=== PATIENT | female | born 1985 | race Two or more races ===

== ENCOUNTER 2021-08-27 21:24 | Inpatient (IN) | payer MEDICAID ==
[~2021-08-27] VITALS: Ht 154 cm; Wt 73.5 kg
[2021-08-27] MEDS ORDERED: NALOXONE HCL 0.4 MG/ML 1ML VIAL IM PRN (22:30)
[2021-08-27] MEDS ORDERED: CARBOPROST TROMETHAMINE 250 MCG/ML AMPUL IM PRN (22:30)
[2021-08-27] MEDS ORDERED: MISOPROSTOL 100MCG TABLET VG SCH (22:30)
[2021-08-27] MEDS ORDERED: METHYLERGONOVINE MALEATE 0.2 MG/ML IM PRN (22:30)
[2021-08-27] MEDS: LACTATED RINGERS 1,000 ML IV SCH (23:05)
[2021-08-27 23:48] LABS: BASOPHILS % 0.4 % (0.0-2.0); EOSINOPHILS % 0.8 % (0.0-5.0); HEMATOCRIT. 35.3 % (36.0-48.0); HEMOGLOBIN. 11.6 g/dL (12.0-16.0); LYMPHOCYTES % 27.6 % (20.0-50.0); MEAN CORPUSCULAR HEMOGLOBIN 26.5 pg (28.0-32.0); MEAN CORPUSCULAR VOLUME 80.4 fL (81.0-99.0); MEAN PLATELET VOLUME 8.9 fl (7.4-10.4); MONOCYTES % 9.7 % (2.0-8.0); NEUTROPHILS % 61.5 % (40.0-76.0); PLATELET 255 x1000/uL (130-400); RED BLOOD CELL COUNT 4.39 mill/uL (4.2-5.4); RED CELL DISTRIBUTION WIDTH 17.1 % (11.6-14.6)
[2021-08-27 23:50] LABS: CHLORIDE 111 mEq/L (98-107)
[2021-08-27 23:55] LABS: CLARITY URINE CLEAR (CLEAR); COLOR URINE YELLOW (YELLOW); KETONES URINE TRACE (NEGATIVE); LEUKOCYTE ESTERASE URINE NEGATIVE (NEGATIVE); NITRITE URINE NEGATIVE (NEGATIVE); OCCULT BLOOD URINE NEGATIVE (NEGATIVE); PH URINE 5.5 (4.5-8.0); PROTEIN URINE NEGATIVE (NEGATIVE); SPECIFIC GRAVITY URINE 1.018 (1.005-1.030); UROBILINOGEN URINE 0.2 E.U./dL (0.2-1.0)
[2021-08-27 23:56] LABS: PARTIAL THROMBOPLASTIN TIME 28.1 sec (23.4-31.0); PROTHROMBIN TIME 10.6 sec (9.6-11.0)
[2021-08-28] VITALS (7 sets, daily range): BP systolic 103–119; BP diastolic 61–71
[2021-08-28] MEDS ORDERED: MORPHINE SULFATE/PF 1MG/ML 10ML AMP ONE (00:05)
[2021-08-28 00:15] LABS: *AMPHETAMINES SCREEN URINE NEGATIVE (NEGATIVE); *BARBITURATES SCREEN URINE NEGATIVE (NEGATIVE); *BENZODIAZEPINES SCREEN URINE NEGATIVE (NEGATIVE); *COCAINE SCREEN URINE NEGATIVE (NEGATIVE); CANNABINOID URINE SCREEN NEGATIVE (NEGATIVE); METHADONE URINE SCREEN NEGATIVE (NEGATIVE); OPIATES URINE SCREEN NEGATIVE (NEGATIVE); PHENCYCLIDINE URINE SCREEN NEGATIVE (NEGATIVE)
[2021-08-28] MEDS ORDERED: FENTANYL CITRATE/PF 50MCG/ML 2ML VIAL IV PRN ×2 (00:15)
[2021-08-28] MEDS ORDERED: NALOXONE HCL 0.4 MG/ML 1ML VIAL IV PRN ×2 (00:15→00:45)
[2021-08-28] MEDS ORDERED: ONDANSETRON HCL 4MG/2ML INJ IM PRN (00:15)
[2021-08-28] MEDS ORDERED: ONDANSETRON HCL 4MG/2ML INJ IV PRN ×2 (00:15→02:00)
[2021-08-28] MEDS ORDERED: DIPHENHYDRAMINE 50MG/ML VIAL IM PRN (00:15)
[2021-08-28] MEDS ORDERED: OXYTOCIN 10 UNITS/ML 1ML ONE (00:15)
[2021-08-28] MEDS ORDERED: MEPERIDINE HCL/PF 25MG/ML CPJ IV PRN (00:15)
[2021-08-28] MEDS ORDERED: DIPHENHYDRAMINE 50MG/ML VIAL IV PRN (00:15)
[2021-08-28] MEDS ORDERED: CEFAZOLIN SODIUM 1000MG/VIAL ONE (00:16)
[2021-08-28] MEDS ORDERED: DEXAMETHASONE 4MG/ML 1ML VIAL ONE (00:16)
[2021-08-28] MEDS ORDERED: ONDANSETRON HCL 4MG/2ML INJ ONE (00:16)
[2021-08-28] MEDS ORDERED: METOCLOPRAMIDE HCL 10MG/2ML VIAL ONE (00:16)
[2021-08-28 00:19] LABS: HEPATITIS B SURFACE ANTIGEN NEGATIVE
[2021-08-28] MEDS ORDERED: GLYB1TAB PO (00:31)
[2021-08-28] MEDS ORDERED: PREN1TAB78 PO (00:31)
[2021-08-28] MEDS ORDERED: DEXAMETHASONE 4MG/ML 1ML VIAL IV PRN (00:45)
[2021-08-28] MEDS: LACTATED RINGERS 1,000 ML IV SCH (00:50)
[2021-08-28] MEDS ORDERED: KETOROLAC 60MG/2ML VIAL IM ONE (01:24)
[2021-08-28] MEDS ORDERED: EPHEDRINE SULFATE 50MG/ML VIAL ONE (01:28)
[2021-08-28] MEDS ORDERED: BISACODYL 10MG SUPP PR PRN (02:00)
[2021-08-28] MEDS ORDERED: HYDROCODONE/ACETAMINOPHEN 5/325MG TABLET PO PRN (02:00)
[2021-08-28] MEDS ORDERED: HEMORRHOIDAL SUPP PR PRN (02:00)
[2021-08-28] MEDS ORDERED: IBUPROFEN 400MG TABLET PO PRN (02:00)
[2021-08-28] MEDS ORDERED: DIPHENHYDRAMINE 25MG CAPSULE PO PRN (02:00)
[2021-08-28] MEDS: OXYTOCIN 20 UNITS in LACTATED RINGERS 1,000 ML IV SCH ×2 (05:07→05:23)
[2021-08-28] MEDS: KETOROLAC 30MG/ML VIAL IV SCH ×3 (05:07→17:00)
[2021-08-28] MEDS: DEXT 5%/LR + PITOCIN 20UNITS/L 1,000 ML IV SCH ×2 (05:24→12:58)
[2021-08-28] MEDS: MAGNESIUM/ALUMINUM HYDROXIDE/SIMETHICONE 30ML UDC PO SCH ×4 (07:30→20:30)
[2021-08-28] MEDS: SIMETHICONE 80MG TABLET CHEW PO SCH ×4 (08:00→20:31)
[2021-08-28] MEDS: PRENATAL VIT/FE FUMARATE/FA TABLET PO SCH ×2 (09:00→12:18)
[2021-08-28] MEDS: DOCUSATE SODIUM 100MG CAPSULE PO SCH (20:31)
[2021-08-28] MEDS: IBUPROFEN 800MG TABLET PO PRN (20:31)
[2021-08-29 04:15] VITALS: BP 109/60
[2021-08-29 06:25] LABS: BASOPHILS % 0.2 % (0.0-2.0); EOSINOPHILS % 0.5 % (0.0-5.0); HEMATOCRIT. 34.3 % (36.0-48.0); HEMOGLOBIN. 11.6 g/dL (12.0-16.0); LYMPHOCYTES % 19.8 % (20.0-50.0); MEAN CORPUSCULAR HEMOGLOBIN 26.8 pg (28.0-32.0); MEAN PLATELET VOLUME 8.2 fl (7.4-10.4); MONOCYTES % 10.1 % (2.0-8.0); NEUTROPHILS % 69.4 % (40.0-76.0); PLATELET 221 x1000/uL (130-400); RED BLOOD CELL COUNT 4.33 mill/uL (4.2-5.4); RED CELL DISTRIBUTION WIDTH 17.2 % (11.6-14.6)
[2021-08-29 08:00] VITALS: BP 103/57
[2021-08-29] MEDS: FERROUS SULFATE 325MG TABLET PO SCH ×3 (08:17→19:04)
[2021-08-29] MEDS: LANOLIN OINT 7GM TUBE TOP PRN (08:18)
[2021-08-29] MEDS: MAGNESIUM/ALUMINUM HYDROXIDE/SIMETHICONE 30ML UDC PO SCH ×4 (08:18→20:25)
[2021-08-29] MEDS: PRENATAL VIT/FE FUMARATE/FA TABLET PO SCH (08:18)
[2021-08-29] MEDS: SIMETHICONE 80MG TABLET CHEW PO SCH ×4 (08:18→20:26)
[2021-08-29] MEDS: IBUPROFEN 800MG TABLET PO PRN ×3 (08:19→20:26)
[2021-08-29 16:50] VITALS: BP 116/79
[2021-08-29 20:00] VITALS: BP 109/73
[2021-08-29] MEDS: DOCUSATE SODIUM 100MG CAPSULE PO SCH (20:26)
[2021-08-30 03:00] VITALS: BP 106/60
[2021-08-30 08:00] VITALS: BP 115/72
[2021-08-30] MEDS: PRENATAL VIT/FE FUMARATE/FA TABLET PO SCH (08:09)
[2021-08-30] MEDS: FERROUS SULFATE 325MG TABLET PO SCH ×3 (08:10→17:49)
[2021-08-30] MEDS: MAGNESIUM/ALUMINUM HYDROXIDE/SIMETHICONE 30ML UDC PO SCH ×4 (08:10→21:42)
[2021-08-30] MEDS: SIMETHICONE 80MG TABLET CHEW PO SCH ×4 (08:10→21:43)
[2021-08-30] MEDS: IBUPROFEN 800MG TABLET PO PRN ×2 (14:58→21:43)
[2021-08-30 15:08] VITALS: BP 226/73
[2021-08-30 19:30] VITALS: BP 121/80
[2021-08-30] MEDS: LANOLIN OINT 7GM TUBE TOP PRN (21:42)
[2021-08-30] MEDS: DOCUSATE SODIUM 100MG CAPSULE PO SCH (21:42)
[2021-08-31] MEDS: IBUPROFEN 800MG TABLET PO PRN (03:42)
[2021-08-31 04:00] VITALS: BP 97/63
[2021-08-31 07:30] VITALS: BP 119/77
[2021-08-31] MEDS: FERROUS SULFATE 325MG TABLET PO SCH (07:59)
[2021-08-31] MEDS: PRENATAL VIT/FE FUMARATE/FA TABLET PO SCH (07:59)
[2021-08-31] MEDS: MAGNESIUM/ALUMINUM HYDROXIDE/SIMETHICONE 30ML UDC PO SCH (07:59)
[2021-08-31] MEDS: SIMETHICONE 80MG TABLET CHEW PO SCH (08:00)
[2021-08-31] MEDS ORDERED: IBUP-2029 MT (09:36)
== END 2021-08-31 11:45 | disposition home or self-care (01) | DRG 540 ==
LOC: 8 EST LDRP 21:24 → OBSVTOIN 21:24 → 8EST 08-28 05:20
PROVIDERS: ADMIT Specialist; ATTEND Specialist
PROC: 10D00Z1 Extraction of Products of Conception, Low, Open Approach (ICD-10-PCS; principal; 2021-08-28)
DX: O34.211 Maternal care for low transverse scar from previous cesarean delivery (principal); D62 Acute posthemorrhagic anemia; O36.63X0 Maternal care for excessive fetal growth, third trimester, not applicable or unspecified; O24.425 Gestational diabetes mellitus in childbirth, controlled by oral hypoglycemic drugs; O69.1XX0 Labor and delivery complicated by cord around neck, with compression, not applicable or unspecified; O35.8XX0 Maternal care for other (suspected) fetal abnormality and damage, not applicable or unspecified; Z20.822 Contact with and (suspected) exposure to COVID-19; O99.02 Anemia complicating childbirth; O99.214 Obesity complicating childbirth; Z37.0 Single live birth; Z3A.39 39 weeks gestation of pregnancy
CPT/HCPCS: 36415; 80053; 80305; 81003; 82962; 85025; 86592; 86703; 86762; 86850; 86900; 87340; 87426; 88307; 99281; G0378; J0690; J1100; J1200; J1885; J2274; J2405; J2590; J2765; J3490; J7120; A4315